=== PATIENT | male | born 2000 | race Caucasian/White ===

== ENCOUNTER 2024-08-14 13:39 | Emergency (ER) | payer BC, SELFPAY ==
[2024-08-14 13:41] VITALS: BP 121/64
--- NOTE | 2024-08-14 14:44 | ED.GENMED ---
History of Present Illness
General
Chief Complaint: Musculo-Skeletal Complaint
Time Seen by Provider: 08/14/24 14:34
History of Present Illness
History of Present Illness:
23-year-old male presents to the emergency department for evaluation of right knee pain, was playing dodgeball yesterday, states while throwing a ball he planted the right foot and felt on the pop in the right knee. Feels similar to past ACL injury
on the left knee. Able to bear weight with discomfort
Past History
Past History
ED Past Medical History: None
ED Past Surgical History: Other (Eye surgery)
Social History
Tobacco: Non-smoker
Alcohol: Occasional
Drug: None
Personal: Single
Living: with roommate
Employment: Student
Family History
Family History: Negative CAD
Review of Systems
Review of Systems
Allergies reviewed?: Yes
All Other Systems: ROS reviewed and negative except as documented in HPI and ROS
Phy Exam
Physical Exam
Physical Exam:
GEN: Well appearing, NAD, WDWN
HEENT: Oral mucosa moist, no scleral icterus
Cardiac: Regular rate
Lung: No respiratory distress, no tachypnea
MSK: No gross deformity or injuries. Left knee range of motion normal, no palpable joint effusion, no anterior drawer laxity. Positive grind test
Skin: Good color, no pallor or jaundice, no rashes
Neuro: AO x3, moves all extremities freely
Psych: Calm, cooperative
Course
Orders/Labs/Results
Orders:
Orders
08/14/24 13:40
Knee, Right 4 or More Views [CR Knee- Right 4 Or More View*] Urgent
Comment:
Reason For Exam: pain
08/14/24 14:43
Knee Immobilizer Right-Treatme ONCE
Vital Signs
Initial and Last Documented VS:
Initial Vital Signs
Temp Pulse Resp BP Pulse Ox
97.8 F 55 16 121/64 100
08/14/24 13:41 08/14/24 13:41 08/14/24 13:41 08/14/24 13:41 08/14/24 13:41
Last Documented Vital Signs
Temp Pulse Resp BP Pulse Ox
97.8 F 55 16 121/64 100
08/14/24 13:41 08/14/24 13:41 08/14/24 13:41 08/14/24 13:41 08/14/24 13:41
MDM/Problems Addressed
MDM/Problems Addressed:
Exam consistent with meniscal injury, regardless internal soft tissue derangement will require outpatient Ortho follow-up, placed in knee immobilizer with weightbearing as tolerated instructions
*Critical Care Note
Total Time (30-74mins, 75-104mins- exclusive of procedures): Not Applicable
ED Attending Note
-
Portions of this chart may have been created with voice recognition software.� Occasional wrong word or��sound alike� substitutions may have occurred due to the inherent limitations of voice recognition software.
Discharge Plan
Departure
Patient Disposition: Home (Routine Discharge)
Date of Disposition: 08/14/24
Time of Disposition: 14:44
Patient with high blood pressure during this ER visit?: No
Discharge Problem:
Acute internal derangement of right knee
Instructions: Knee Sprain (DC)
Prescriptions:
No Action
cholecalciferol (vitamin D3) [Vitamin D3] 25 mcg (1,000 unit) Capsule
25 mcg PO DAILY
guaifenesin [Mucinex] 600 mg Tablet Extended Release 12hr
600 mg PO Q12H PRN (Reason: congestion)
Dayquil
2 tab PO DAILY PRN (Reason: congestion)
methylprednisolone [Medrol (Alireza)] 4 mg tablets,dose pack
See Rx Instructions .ROUTE .COMPLEX Qty: 21 0RF
Rx Instructions:
orally per package directions
Referrals:
Jerrell Pulido MD [Active] -
Activity Restrictions/Additional Instructions:
Knee immobilizer when upright/walking until Orthopedic follow up
Ibuprofen/Tylenol as needed for pain
Interventions
Interventions:
*Risk Screen - Suicide Last Done: 08/14/24 13:51
*General Assessment Last Done: 08/14/24 13:51
*Neglect/Abuse Screening Last Done: 08/14/24 13:51
*ED- Fall Risk Assessment Last Done: 08/14/24 13:51
*Nursing Disposition Last Done: 08/14/24 14:52
ED-Musculoskeletal Assessment Last Done: 08/14/24 13:51
Discharge Date and Time
Discharge Date/Time: 08/14/24 14:52
Print Language: TELUGU
== END 2024-08-14 14:52 | disposition home or self-care (01) ==
LOC: EMR 13:39
PROVIDERS: EMERGENCY PHYSICIAN Emergency Medicine; FAMILY PHYSICIAN Hospitalist
DX: M23.91 Unspecified internal derangement of right knee (principal)
CPT/HCPCS: 29505; 99283; 73564